=== PATIENT | female | born 1950 | race Caucasian/White ===

== ENCOUNTER 2020-03-07 05:22 | Inpatient (IN) ==
[2020-03-07] MEDS: LACTATED RINGERS 1,000 ML IV SCH (06:30)
[2020-03-07] MEDS ORDERED: DEXMEDETOMIDINE 200 MCG/2 ML VIAL ONE (06:39)
[2020-03-07] MEDS ORDERED: BUPIVACAINE MPF 0.25% 30 ML VIAL ONE (06:40)
[2020-03-07] MEDS ORDERED: FAMOTIDINE 20 MG TABLET PO ONE (06:41)
[2020-03-07] MEDS ORDERED: DIAZEPAM 5 MG TABLET PO ONE (06:41)
[2020-03-07] MEDS ORDERED: ACETAMINOPHEN 500 MG TABLET PO ONE (06:41)
[2020-03-07] MEDS ORDERED: GABAPENTIN 400 MG CAPSULE PO ONE (06:41)
[2020-03-07] MEDS ORDERED: SCOPOLAMINE 1.5 MG PATCH TRANSDERM ONE (06:41)
[2020-03-07] MEDS ORDERED: VANCOMYCIN INJ 1,000 MG in SODIUM CHLORIDE 0.9% 250 ML IV ONE (07:00)
[2020-03-07] MEDS ORDERED: CLINDAMYCIN INJ 900 MG in PREMIX 1 EACH IV ONE (07:00)
[2020-03-07] MEDS ORDERED: PROMETHAZINE 25 MG/1 ML VIAL IM PRN (07:11)
[2020-03-07] MEDS ORDERED: MAGNESIUM HYDROXIDE SUSP 30 ML UDCUP PO PRN (07:11)
[2020-03-07] MEDS ORDERED: diphenhydrAMINE CAP 25 MG CAPSULE PO PRN (07:11)
[2020-03-07] MEDS ORDERED: LACTULOSE 20 GM/30 ML UDCUP PO PRN (07:11)
[2020-03-07] MEDS ORDERED: TEMAZEPAM 7.5 MG CAPSULE PO PRN (07:11)
[2020-03-07] MEDS ORDERED: BISACODYL 10 MG SUPP RECTAL PRN (07:11)
[2020-03-07] MEDS ORDERED: ACETAMINOPHEN 500 MG TABLET PO PRN (07:14)
[2020-03-07] MEDS ORDERED: TRANEXAMIC ACID 1,000 MG/10 ML VIAL ONE (08:01)
[2020-03-07] MEDS ORDERED: BUPIVACAINE SPINAL 0.75% 2 ML AMP SPINAL ONE (08:59)
[2020-03-07] MEDS ORDERED: PHENYLEPHRINE 1 MG/10 ML SYRINGE IV ONE (08:59)
[2020-03-07] MEDS ORDERED: NON-FORMULARY MEDICATION (Docusate Sodium 50 mg Capsule) PO SCH (09:00)
[2020-03-07] MEDS ORDERED: [UNRECOGNIZED DRUG - OTHER] PO SCH (09:00)
[2020-03-07 10:41] LABS: Basophils % 0.3 % (0.0-0.8); Eosinophils # 0.1 10*3/uL (0.0-0.87); Eosinophils % 0.7 % (0.00-10.9); Hematocrit 33.6 VOL% (35.7-47.0); Hemoglobin 11.3 GM/DL (12.0-16.0); Immature Granulocytes % 0.4 %; Immature Granulocytes Absolute 0.03 #; Lymphocytes # 0.7 10*3/uL (1.4-4.0); Lymphocytes % 9.5 % (21.3-54.2); Mean Corpuscular HGB Conc 33.6 GM/DL (32-36); Mean Corpuscular Volume 95.7 FL (87-102); Mean Platelet Volume 8.4 FL (9.6-12.0); Monocytes % 3.6 % (1.7-12.7); Neutrophils % 85.5 % (38.7-73.9); Platelet Count 262 T/CUMM (130-400); Red Blood Count 3.51 MC/CUMM (3.8-5.5); Red Cell Distribution Width 12.5 % (9.3-17.3); White Blood Count 7.2 T/CUMM (4-12)
[2020-03-07 11:25] LABS: Calcium 9.5 MG/DL (8.5-10.1); Osmolality,Calculated 276.7 MOS/KG (273-304)
[2020-03-07] MEDS: ONDANSETRON 4 MG/2 ML VIAL IV PRN ×2 (13:39→19:53)
[2020-03-07] MEDS: MORPHINE 4 MG/1 ML VIAL IV PRN ×2 (13:40→19:53)
[2020-03-07] MEDS: ASCORBIC ACID 500 MG TABLET PO SCH (19:51)
[2020-03-07] MEDS: hydroCHLOROthiazide 25 MG TABLET PO SCH (19:51)
[2020-03-07] MEDS: CLINDAMYCIN INJ 900 MG in PREMIX 1 EACH IV SCH (19:52)
[2020-03-07] MEDS: FONDAPARINUX 2.5 MG/0.5 ML SYRINGE SUBCUT SCH (21:43)
[2020-03-07] MEDS: METOPROLOL TARTRATE 25 MG TABLET PO SCH (21:44)
[2020-03-07] MEDS: DOCUSATE SODIUM 100 MG CAPSULE PO SCH (21:45)
[2020-03-08] MEDS: CLINDAMYCIN INJ 900 MG in PREMIX 1 EACH IV SCH (01:58)
[2020-03-08] MEDS ORDERED: CLINDAMYCIN INJ 900 MG in PREMIX 1 EACH IV SCH (05:00)
[2020-03-08 06:04] LABS: Basophils % 0.3 % (0.0-0.8); Eosinophils % 0.6 % (0.00-10.9); Hematocrit 30.6 VOL% (35.7-47.0); Hemoglobin 10.4 GM/DL (12.0-16.0); Immature Granulocytes % 0.6 %; Immature Granulocytes Absolute 0.04 #; Lymphocytes # 1.4 10*3/uL (1.4-4.0); Lymphocytes % 19.6 % (21.3-54.2); Mean Corpuscular Volume 95.9 FL (87-102); Monocytes % 8.3 % (1.7-12.7); Neutrophils % 70.6 % (38.7-73.9); Platelet Count 256 T/CUMM (130-400); Red Blood Count 3.19 MC/CUMM (3.8-5.5); Red Cell Distribution Width 12.4 % (9.3-17.3); White Blood Count 7.2 T/CUMM (4-12)
[2020-03-08 06:44] LABS: Calcium 9.4 MG/DL (8.5-10.1); Osmolality,Calculated 272.8 MOS/KG (273-304)
[2020-03-08] MEDS: PANTOPRAZOLE 40 MG TABLET PO SCH (06:52)
[2020-03-08] MEDS: hydroCHLOROthiazide 25 MG TABLET PO SCH (08:25)
[2020-03-08] MEDS: VITAMIN E 400 UNIT CAPSULE PO SCH (08:25)
[2020-03-08] MEDS: ASCORBIC ACID 500 MG TABLET PO SCH (08:25)
[2020-03-08] MEDS: DOCUSATE SODIUM 100 MG CAPSULE PO SCH ×2 (08:25→21:26)
[2020-03-08] MEDS: LACTATED RINGERS 1,000 ML IV SCH (13:51)
[2020-03-08] MEDS: METOPROLOL TARTRATE 25 MG TABLET PO SCH (21:26)
[2020-03-08] MEDS: FONDAPARINUX 2.5 MG/0.5 ML SYRINGE SUBCUT SCH (21:27)
[2020-03-09] MEDS: LACTATED RINGERS 1,000 ML IV SCH (06:49)
[2020-03-09] MEDS: PANTOPRAZOLE 40 MG TABLET PO SCH (06:50)
[2020-03-09] MEDS: hydroCHLOROthiazide 25 MG TABLET PO SCH (09:29)
[2020-03-09] MEDS: DOCUSATE SODIUM 100 MG CAPSULE PO SCH (09:29)
[2020-03-09] MEDS: ASCORBIC ACID 500 MG TABLET PO SCH (09:29)
[2020-03-09] MEDS: VITAMIN E 400 UNIT CAPSULE PO SCH (09:29)
[2020-03-09 11:21] VITALS: BP 103/41
== END 2020-03-09 14:00 | disposition home health service (06) | DRG 470 ==
LOC: N.OR 05:22 → N.SDSINP 05:29 → N.3E 09:58
PROVIDERS: ADMIT Orthopaedic Surgery; ATTEND Orthopaedic Surgery